=== PATIENT | female | born 1950 | race Caucasian/White ===

== ENCOUNTER 2023-01-07 15:23 | Observation (INO) ==
[2023-01-07] MEDS ORDERED: SODIUM CHLORIDE 1,000 ML IV STA (15:36)
[2023-01-07] MEDS ORDERED: ZOFRAN 4 MG/2 ML IVP ONE (15:40)
--- NOTE | 2023-01-07 15:40 | ED.PDOC ---
General ED Provider: Dr. JOANNA BURNETT MD Chief Complaint: Nausea/Vomiting Stated Complaint: N/V/D Time Seen by Provider: 01/07/23 15:35 Mode of Arrival: Wheelchair Information Source: Patient Exam Limitations: No limitations Primary Care Provider: CORNELIUS MISTRY Nursing and Triage Documentation Reviewed and Agree: Yes GI Complaint Exam Vomiting/Diarrhea Complaint/Exam Onset/Duration: ~1 day ago Symptoms Are: Still present Episodes of Vomiting over last 24 Hours: 50 Episodes of Diarrhea Over Last 24 Hours: 30 Initial Severity: Moderate Current Severity: Moderate Character of Vomiting: Reports Non-bilious Character of Diarrhea: Reports Watery Aggravating: Reports None Alleviating: Reports Clear liquids (Armor Lite (electrolyte drink)) Associated Signs and Symptoms: Reports Dizziness and Light-headedness; Denies Abdominal pain or Cramping Related History: Reports Similar episode (last year secondary to 'intestinal infection' requiring Magnesium, Potassium, and Flagyl) Last Oral Intake: this morning (BodyArmor Lite) Last Bowel Movement: just PERFORMANCE ARCHITECT Non-GI Risk Factors: Reports Vomiting due to neuro Surgical Obstruction Risk Factors: Reports Prior abdominal surgery Related Surgical History: Reports Cholecystectomy, Appendectomy and Colectomy (mass in rectum, second mass in colon) Abdominal Findings: Present None Kussmaul Respirations Present: No Differential Diagnoses: Bowel Obstruction, Dehydration, Gastritis, Viral Gastroenteritis, Bacterial Gastroenteritis, Hepatitis, Pancreatitis and UTI Review of Systems Review Of Systems Constitutional: Reports Malaise, Weakness and Sweats GI: Reports Diarrhea and Nausea; Denies Abdomen distended or Abdominal pain Neurological: Reports Anxiety, Weakness and Other (dizziness/vertigo) All Other Systems: Reviewed and Negative [facility] Medical History Arthritis Cancer Gastrointestinal complication Heart disease Thyroid condition Family History (Updated 01/07/23 @ 21:40 by DONALD BARRETO RN) Mother Elevated LDL cholesterol level Stroke FATHER Myocardial infarct Social History Smoking and tobacco status: Never smoker Alcohol intake: never Substance use type: does not use Elsa/orthodox: YAZDANISM Special elsa needs: No Number of children: 2 Seatbelt use: always Drives intoxicated or rides with intoxicated 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 Working smoke detector in home: Yes Fire extinguisher in home: Yes Carbon monoxide detector in home: Yes Surgical History History of appendectomy History of tonsillectomy Female Reproductive History Menstrual Hx Hysterectomy: Yes Physical Exam Physical Exam Appearance: Reports Ill-appearing and Well-nourished Ill-appearing: Moderate Pain Distress: None Eyes: Reports FAIZA, EOMI and Conjunctiva clear ENT: Reports Ears normal and Nose normal Neck: Nonsupple (normal age-appropriate external appearance) Respiratory: Reports Airway patent, Breath sounds clear and Breath sounds equal Cardiovascular: Reports RRR GI/: Reports Soft, Nontender and Bowel sounds normal Musculoskeletal: Reports Normal strength Skin: Reports Warm, Dry and Normal color Neurological: Reports Sensation intact, Motor intact and Cranial nerves intact Psychiatric: Reports Affect appropriate and Mood appropriate Critical Care Note Critical Care Note Total Critical Care Time (mins): 0 Course Course 01/08/23 04:50 01/08/23 04:50 Orders, Labs, Meds: Lab Review 01/07/23 01/07/23 16:03 17:00 WBC 8.21 RBC 4.38 Hgb 13.2 Hct 40.7 MCV 92.9 MCH 30.1 MCHC 32.4 RDW Coeff of Claire 12.5 Plt Count 239 Immature Gran % (Auto) 0.2 Neut % (Auto) 81.5 H Lymph % (Auto) 8.9 L [place] % (Auto) 8.3 Eos % (Auto) 0.6 Baso % (Auto) 0.5 Neut # (Auto) 6.7 Lymph # (Auto) 0.7 [place] # (Auto) 0.7 Eos # (Auto) 0.1 Baso # (Auto) 0.0 Immature Gran # (Auto) 0.0 Sodium 136.8 Potassium 3.45 L Chloride 102.1 Carbon Dioxide 26.4 Anion Gap 11.75 BUN 9.7 Creatinine 0.77 Estimated GFR (MDRD) 74.00 BUN/Creatinine Ratio 12.59 Glucose 104.5 Lactic Acid 1.36 Calcium 8.72 Magnesium 1.93 Total Bilirubin 1.11 AST 26.9 ALT 18.8 Alkaline Phosphatase 103.4 NT-Pro-B Natriuret Pep 659 H Total Protein 6.86 Albumin 3.97 Globulin 2.89 Albumin/Globulin Ratio 1.37 Amylase 54.0 Lipase 63.7 Procalcitonin < 0.05 Urine Color Yellow Urine Clarity Clear Urine pH 7.0 Ur Specific [place] 1.015 Urine Protein Negative Urine Glucose (UA) Negative Urine Ketones Trace H Urine Blood Negative Urine Nitrite Negative Urine Bilirubin Negative Urine Urobilinogen 0.2 Ur Leukocyte Esterase Negative Influ A Molecular Assay Negative by naat Influ B Molecular Assay Negative by naat RSV Antigen Negative by naat SARS CoV-2 RNA Rapid DAMEON Negative Orders Category Date Time Status PLACE PATIENT OBSERVATION .TO MEDSURG (MONITORED BED ADMISSION 01/07/23 18:16 Active ) ACTIVITY .Early Mobilization for VTE Prevention CARE 01/07/23 18:16 Active BLOOD GLUCOSE MONITORING (MED/SURG) ACCUCHECK Q6H CARE 01/07/23 18:16 Active INTAKE & OUTPUT Q8HR CARE 01/07/23 18:16 Active IP: INSERT SALINE LOCK ONCE CARE 01/07/23 18:16 Active ORTHOSTATIC VITAL SIGNS Q8HR CARE 01/07/23 18:16 Active TELEMETRY MONITORING TELE CARE 01/07/23 18:16 Active VITAL SIGNS Q4HR CARE 01/07/23 18:16 Active Saline Lock [ED IV/MEDIPORT/POWERPORT] .ONCE EMERGENCY 01/07/23 15:36 Active AMYLASE Stat LAB 01/07/23 16:03 Completed BLOOD CULTURE (ED ONLY) Stat LAB 01/07/23 16:03 Received BLOOD CULTURE (ED ONLY) Stat LAB 01/07/23 16:29 Received CBC W/ AUTO DIFF DAILY@0600 LAB 01/08/23 04:50 Completed CBC W/ AUTO DIFF DAILY@0600 LAB 01/09/23 06:00 Ordered CBC W/ AUTO DIFF Stat LAB 01/07/23 16:03 Completed CMP [COMPREHENSIVE METABOLIC PANEL] Stat LAB 01/07/23 16:03 Completed COMPREHENSIVE METABOLIC PANEL DAILY@0600 LAB 01/08/23 04:50 Completed COMPREHENSIVE METABOLIC PANEL DAILY@0600 LAB 01/09/23 06:00 Ordered COVID [SARS COV-2 RNA RAPID DAMEON] Stat LAB 01/07/23 16:03 Completed FLU A & B MOLECULAR [FLU A/B MOLECULAR] Stat LAB 01/07/23 16:03 Completed LACTIC ACID Stat LAB 01/07/23 16:03 Completed LIPASE Stat LAB 01/07/23 16:03 Completed MAGNESIUM DAILY@0600 LAB 01/08/23 04:50 Completed MAGNESIUM Stat LAB 01/07/23 16:03 Completed NT-PROBNP(ED) Stat LAB 01/07/23 16:03 Completed PROCALCITONIN Stat LAB 01/07/23 16:03 Completed RAPID STREP SCREEN [MOLECULAR GROUP A STREP] Stat LAB 01/07/23 16:03 Completed RSV Stat LAB 01/07/23 16:03 Completed UA [URINALYSIS C & S IF INDICATED] Stat LAB 01/07/23 17:00 Completed 0.9 % Sodium Chloride [Saline Flush] Meds 01/07/23 15:36 Active 1 syr IVF PRN PRN Furosemide [Lasix] Meds 01/07/23 16:57 Discontinued 20 mg IVP ONCE ONE Meclizine HCl [Antivert] Meds 01/07/23 18:16 Active 25 mg PO BID PRN Meclizine HCl [Antivert] Meds 01/07/23 18:07 Discontinued 25 mg PO ONCE ONE Metoclopramide HCl [Reglan] Meds 01/07/23 18:16 Active 5 mg IVP Q6H PRN Ondansetron HCl/Pf [Zofran 4 mg/2 ml] Meds 01/07/23 15:40 Discontinued 4 mg IVP ONCE ONE Ondansetron HCl/Pf [Zofran 4 mg/2 ml] Meds 01/07/23 18:16 Active 4 mg IVP Q6H PRN Pantoprazole Sodium [Protonix IV] Meds 01/08/23 20:00 Active 40 mg IVP DAILY Potassium Chloride/D5-0.45NACL [D5%-1/2Ns-KCl 20 Meq/l Meds 01/07/23 17:00 Discontinued IV Ania] 1,000 ml Mvi, Adult No.1 with Vit K [Infuvite Adult] 10 ml IV 100 mls/hr Potassium Chloride/D5-0.45NACL [D5%-1/2Ns-KCl 20 Meq/l Meds 01/07/23 17:11 Discontinued IV Ania] 1,000 ml IV 100 mls/hr Sodium Chloride 0.9% [Sodium Chloride] 1,000 ml Meds 01/07/23 15:[address] HEAD W/O CONTRAST Stat RADS 01/07/23 17:54 Completed KUB Stat RADS 01/07/23 15:37 Completed Medications Generic Name Dose Route Start Last Admin Trade Name Freq PRN Reason Stop Dose Admin Bupropion HCl 300 mg 01/08/23 09:00 Bupropion Hcl 150 Mg Tab.Er.24h PO DAILY MICHELLE Carisoprodol 350 mg 01/07/23 22:00 01/07/23 21:51 Carisoprodol 350 Mg Tablet PO 350 mg TID MICHELLE Administration Potassium Chloride/Dextrose/Sod Cl 1,000 mls @ 100 mls/hr 01/08/23 03:14 01/08/23 03:17 D5%-1/2ns-Kcl 20 Meq/L Iv Ania IV 01/08/23 13:13 100 mls/hr .Q10H STA Administration Lorazepam 2 mg 01/07/23 22:00 01/07/23 21:51 Lorazepam 1 Mg Tablet PO 2 mg TID MICHELLE Administration Meclizine HCl 25 mg 01/07/23 18:16 01/08/23 05:48 Meclizine Hcl 25 Mg Tablet PO 25 mg BID PRN Administration Vertigo Metoclopramide HCl 5 mg 01/07/23 18:16 01/07/23 22:11 Metoclopramide Hcl 10 Mg/2 Ml IVP 5 mg Q6H PRN Administration Nausea / Vomiting Ondansetron HCl 4 mg 01/07/23 18:16 Ondansetron Hcl/Pf 4 Mg/2 Ml Sdv IVP Q6H PRN Nausea / Vomiting Pantoprazole Sodium 40 mg 01/08/23 20:00 Pantoprazole Sodium 40 Mg Vial IVP DAILY MICHELLE Potassium Chloride 20 meq 01/08/23 12:00 Potassium Chloride 20 Meq Tab PO 01/08/23 12:01 ONCE ONE Sodium Chloride 1 syr 01/07/23 15:36 01/07/23 15:50 0.9% Sodium Chloride 10 Ml Disp.Syrin IVF 1 syr PRN PRN Administration To flush IV Discontinued Medications Generic Name Dose Route Start Last Admin Trade Name Freq PRN Reason Stop Dose Admin Furosemide 20 mg 01/07/23 16:57 01/07/23 17:17 Furosemide Inj 20 Mg/2 Ml Vial IVP 01/07/23 16:58 20 mg ONCE ONE Administration Sodium Chloride 1,000 mls @ 500 mls/hr 01/07/23 15:36 01/07/23 19:58 Sodium Chloride IV 01/07/23 17:35 Infused BOLUS STA Infusion Multivitamins/Minerals 10 ml/ 1,010 mls @ 100 mls/hr 01/07/23 17:00 01/07/23 18:20 Potassium Chloride/Dextrose/ IV Not Given Sod Cl .Q10H6M MICHELLE Potassium Chloride/Dextrose/Sod Cl 1,000 mls @ 100 mls/hr 01/07/23 17:11 01/08/23 03:15 D5%-1/2ns-Kcl 20 Meq/L Iv Ania IV 01/08/23 03:10 Infused .Q10H STA Infusion Promethazine HCl 12.5 mg/ 50.5 mls @ 100 mls/hr 01/07/23 19:28 01/07/23 19:46 Sodium Chloride IV 01/07/23 19:58 100 mls/hr ONCE ONE Administration Meclizine HCl 25 mg 01/07/23 18:07 01/07/23 18:13 Meclizine Hcl 25 Mg Tablet PO 01/07/23 18:08 25 mg ONCE ONE Administration Ondansetron HCl 4 mg 01/07/23 15:40 01/07/23 15:50 Ondansetron Hcl/Pf 4 Mg/2 Ml Sdv IVP 01/07/23 15:41 4 mg ONCE ONE Administration Potassium Chloride 40 meq 01/08/23 08:30 Potassium Chloride 20 Meq Tab PO 01/08/23 08:31 ONCE ONE Vital Signs: Temp Pulse Resp BP Pulse Ox 01/07/23 18:22 77 135/99 H 01/07/23 18:22 71 156/98 H 01/07/23 18:22 68 158/78 H 01/07/23 15:25 98.5 F 71 20 186/89 H 97 Symptoms began yesterday after the patient had a Flu shot. She reports having sudden onset of vertiginous dizziness, making it very difficult to ambulate. She reports having weakness to the point where she was afraid she couldn't stand. She believes the shot may have led to the symptoms she has been experiencing She had a similar episode in February, which was attributed to an intestinal infection. requiring a 3-day hospitalization receiving IVF, Magnesium, Potassium, and Metronidazole. Labs/swabs on arrival. She was also given IVF/IV Zofran, with clinical improvement noted. When posted, the only clinically significant abnormal values were mild hypokalemia (3.45) and mild to moderate elevation of her BNP (659); her IVF was changed to 1/2NS+K and she was given some Lasix. Flu/Strep/CoVid/RSV were all negative. When posted, the UA was not consistent with UTI. We were unable to collect an uncontaminated stool sample. She improved with treatment, but still has significant dizziness/vertigo. I spoke with Etienne, the Hospitalist NUT GRINDER, who accepted her. She was in stable condition when transported from the ED to the medical floor. CT Head reported 'No acute intracranial abnormalities are seen'. Discharge Plan Discharge Patient Disposition: PLACED OBSERVATION Discharge Problem: Anxiety, Vertigo Diarrhea Qualifiers: Diarrhea type: unspecified type Qualified Code(s): R19.7 - Diarrhea, unspecified Nausea and vomiting Qualifiers: Vomiting type: unspecified Qualified Code(s): R11.2 - Nausea with vomiting, unspecified Did you review [place] ORCHARD PRUNER for ALL controlled substances?: Not Applicable ED Provider: JOANNA BURNETT Condition: Stable Physician Progress Note: []
[2023-01-07 16:12] LABS: BASOPHILS % (AUTO) 0.5 % (0.0-3.0); EOSINOPHILS # (AUTO) 0.1 K/ul (0.0-0.7); EOSINOPHILS % (AUTO) 0.6 % (0.0-7.0); HEMATOCRIT 40.7 % (37.0-47.0); HEMOGLOBIN 13.2 g/dl (12.0-16.0); IMMATURE GRANULOCYTE % (AUTO) 0.2 % (0.0-5.0); LYMPHOCYTES # (AUTO) 0.7 K/uL (0.60-3.4); LYMPHOCYTES % (AUTO) 8.9 (10.0-50.0); MEAN CORPUSCULAR HEMOGLOBIN 30.1 pg (27.0-31.0); MEAN CORPUSCULAR HGB CONC 32.4 (31.8-35.4); MEAN CORPUSCULAR VOLUME 92.9 fl (81.0-99.0); MONOCYTES # (AUTO) 0.7 K/uL (0.4-2.0); MONOCYTES % (AUTO) 8.3 (0-10); NEUTROPHILS # (AUTO) 6.7 K/ul (2.0-6.9); NEUTROPHILS % (AUTO) 81.5 % (42.2-75.2); PLATELET COUNT 239 10^3/uL (140-440); RDW COEFFICIENT OF VARIATION 12.5 % (11.6-14.8); RED BLOOD COUNT 4.38 10^6/ul (4.20-5.40); WHITE BLOOD COUNT 8.21 K/ul (4.6-10.2)
[2023-01-07 16:26] LABS: ALANINE AMINOTRANSFERASE 18.8 U/L (0-35); ALBUMIN 3.97 g/dL (3.5-5.0); ALKALINE PHOSPHATASE 103.4 U/L (53-141); ASPARTATE AMINO TRANSFERASE 26.9 U/L (14-36); BILIRUBIN,TOTAL 1.11 mg/dL (0.2-1.3); BLOOD UREA NITROGEN 9.7 mg/dL (7-17); CALCIUM 8.72 mg/dL (8.4-10.2); CARBON DIOXIDE 26.4 mmol/L (22-30.0); CHLORIDE 102.1 mmol/L (98-107); CREATININE 0.77 mg/dL (0.60-1.30); GLUCOSE 104.5 mg/dL (74-106); LIPASE 63.7 U/L (23-300); MAGNESIUM 1.93 mg/dL (1.6-2.3); POTASSIUM 3.45 mmol/L (3.5-5.1); SODIUM 136.8 mmol/L (134.5-145); TOTAL PROTEIN 6.86 g/dL (6.3-8.2)
--- NOTE | 2023-01-07 16:30 | DI ---
EXAM: SUPINE AP VIEW OF THE ABDOMEN HISTORY: Nausea, vomiting, diarrhea COMPARISON: None available FINDINGS: There is a nonspecific paucity of bowel gas. No abnormal bowel dilation is evident. Atherosclerotic calcifications are seen. No suspicious calcifications are identified. Thoracolumbar levocurvature is identified with multilevel degenerative disc disease and facet arthropathy. IMPRESSION: Nonspecific, nonobstructive bowel gas pattern.
[2023-01-07 16:38] LABS: MOLECULAR FLU A NEGATIVE BY NAAT (NEGATIVE); MOLECULAR FLU B NEGATIVE BY NAAT (NEGATIVE); RSV MOLECULAR NEGATIVE BY NAAT (NEGATIVE); SARS COV-2 RNA RAPID NAAT NEGATIVE (NEGATIVE)
[2023-01-07] MEDS ORDERED: LASIX IVP ONE (16:57)
[2023-01-07] MEDS ORDERED: INFUVITE ADULT 10 ML in D5%-1/2NS-KCL 20 MEQ/L IV SOL 1,000 ML IV SCH (17:00)
[2023-01-07 17:06] LABS: BILIRUBIN,URINE Negative (NEGATIVE); CLARITY,URINE Clear (CLEAR); COLOR,URINE Yellow (YELLOW); GLUCOSE, URINE (UA) Negative (NEGATIVE); KETONES,URINE Trace (NEGATIVE); LEUKOCYTE ESTERASE ,URINE Negative (NEGATIVE); NITRITE,URINE Negative (NEGATIVE); PROTEIN,URINE Negative (NEGATIVE); URINE, BLOOD Negative (NEGATIVE); UROBILINOGEN,URINE 0.2 (0.2)
[2023-01-07] MEDS ORDERED: D5%-1/2NS-KCL 20 MEQ/L IV SOL 1,000 ML IV STA (17:11)
[2023-01-07] MEDS ORDERED: ANTIVERT PO ONE (18:07)
[2023-01-07] MEDS ORDERED: REGLAN IVP PRN (18:16)
[2023-01-07] MEDS ORDERED: ZOFRAN 4 MG/2 ML IVP PRN (18:16)
[2023-01-07] MEDS ORDERED: ANTIVERT PO PRN (18:16)
--- NOTE | 2023-01-07 18:59 | CT ---
EXAM: CT SCAN OF THE HEAD WITHOUT CONTRAST HISTORY: dizziness, vertigo TECHNIQUE: Imaging of the head was performed without contrast. 5 mm thin axial images and coronal a nd sagittal images were obtained. FINDINGS: The ruiz-white interface appears normal. No acute hemorrhages are seen. There is no mass effect. There are no extraaxial collections. The paranasal sinuses are clear. IMPRESSION: No acute intracranial abnormalities are seen. All CT scans are performed using dose optimization techniques as appropriate to the performed exam an d include at least one of the following: Automated exposure control, adjustment of the mA and/or kV according t o size, and the use of iterative reconstruction technique.
[2023-01-07] MEDS ORDERED: PHENERGAN 25 MG/ML VIAL 12.5 MG in SODIUM CHLORIDE 50 ML IV ONE (19:28)
[2023-01-07] MEDS ORDERED: PHENERGAN 25 MG/ML VIAL ONE (19:32)
[2023-01-07 21:31] VITALS: BMI 21.7
[2023-01-07] MEDS: ATIVAN PO SCH (21:51)
[2023-01-07] MEDS: SOMA PO SCH (21:51)
[2023-01-08] MEDS ORDERED: D5%-1/2NS-KCL 20 MEQ/L IV SOL 1,000 ML IV STA (03:14)
[2023-01-08 05:16] LABS: BASOPHILS # (AUTO) 0.1 K/uL (0-0.2); BASOPHILS % (AUTO) 0.8 % (0.0-3.0); EOSINOPHILS # (AUTO) 0.2 K/ul (0.0-0.7); EOSINOPHILS % (AUTO) 3.2 % (0.0-7.0); HEMATOCRIT 35.8 % (37.0-47.0); HEMOGLOBIN 11.7 g/dl (12.0-16.0); IMMATURE GRANULOCYTE % (AUTO) 0.3 % (0.0-5.0); LYMPHOCYTES # (AUTO) 1.5 K/uL (0.60-3.4); LYMPHOCYTES % (AUTO) 25.5 (10.0-50.0); MEAN CORPUSCULAR HEMOGLOBIN 30.2 pg (27.0-31.0); MEAN CORPUSCULAR HGB CONC 32.7 (31.8-35.4); MEAN CORPUSCULAR VOLUME 92.5 fl (81.0-99.0); MONOCYTES # (AUTO) 0.8 K/uL (0.4-2.0); MONOCYTES % (AUTO) 13.9 (0-10); NEUTROPHILS # (AUTO) 3.3 K/ul (2.0-6.9); NEUTROPHILS % (AUTO) 56.3 % (42.2-75.2); PLATELET COUNT 206 10^3/uL (140-440); RDW COEFFICIENT OF VARIATION 12.8 % (11.6-14.8); RED BLOOD COUNT 3.87 10^6/ul (4.20-5.40); WHITE BLOOD COUNT 5.92 K/ul (4.6-10.2)
[2023-01-08 05:35] LABS: ALANINE AMINOTRANSFERASE 15.5 U/L (0-35); ALBUMIN 3.13 g/dL (3.5-5.0); ASPARTATE AMINO TRANSFERASE 25.1 U/L (14-36); BILIRUBIN,TOTAL 0.76 mg/dL (0.2-1.3); BLOOD UREA NITROGEN 9.7 mg/dL (7-17); CALCIUM 8.06 mg/dL (8.4-10.2); CARBON DIOXIDE 27.9 mmol/L (22-30.0); CHLORIDE 105.5 mmol/L (98-107); CREATININE 0.85 mg/dL (0.60-1.30); GLUCOSE 93.2 mg/dL (74-106); MAGNESIUM 1.87 mg/dL (1.6-2.3); POTASSIUM 3.04 mmol/L (3.5-5.1); SODIUM 137.1 mmol/L (134.5-145); TOTAL PROTEIN 5.6 g/dL (6.3-8.2)
[2023-01-08] MEDS ORDERED: K-DUR PO ONE ×3 (08:18→12:00)
[2023-01-08] MEDS ORDERED: WELLBUTRIN XL PO SCH (09:00)
[2023-01-08] MEDS: ATIVAN PO SCH (09:02)
[2023-01-08] MEDS: SOMA PO SCH (09:02)
[2023-01-08 10:04] VITALS: BP 137/71; PULSE 57; RESP 14; TEMP 97.9
--- NOTE | 2023-01-08 11:18 | PCM.SS ---
Provider Provider[facility] TRISH LUX, [facility] Admission Date Admission Date: 01/07/23 Discharge Date Discharge Date: 01/08/23 Primary Care Physician Primary Care Physician: ANSON JUAN Chief Complaint Reason For Visit: N/V/D,VERTIGO History of Present Illness History of Present Illness: Admitted 01/07/23 19:12, this 72 year old /WHITE/F presented to the ER yesterday following a day of N/V/D. States she got her flu shot on 01/06 and that evening she become dizzy and started vomiting. States she continued to worsen as the day went on yesterday before she decided to come into the hospital. Denies any fever that she aware of, abdominal pain, urinary symptoms, chest pain, or sob. Denies any blood in her vomit or stool. Reported her L ear felt as if she had fluid in it and had some pain. [facility] Medical History Gastrointestinal complication K92.9 - Disease of digestive system, unspecified (ICD-10) Thyroid condition E07.9 - Disorder of thyroid, unspecified (ICD-10) Cancer C80.1 - Malignant (primary) neoplasm, unspecified (ICD-10) Heart disease I51.9 - Heart disease, unspecified (ICD-10) Arthritis M19.90 - Unspecified osteoarthritis, unspecified site (ICD-10) Surgical History History of appendectomy Z90.49 - Other specified postprocedural states (ICD-10) History of tonsillectomy Z90.89 - Other specified postprocedural states (ICD-10) Family History Mother Elevated LDL cholesterol level Stroke FATHER Myocardial infarct Social History Smoking and tobacco status: Never smoker Alcohol intake: never Substance use type: does not use Elsa/nondenominational: DENOMINATIONAL Special elsa needs: No Number of children: 2 Seatbelt use: always Drives intoxicated or rides with intoxicated 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 Working smoke detector in home: Yes Fire extinguisher in home: Yes Carbon monoxide detector in home: Yes Medications Mecications: Medications at Discharge (Home Meds & RX) bupropion HCl 150 mg tablet,12 hr sustained-release (Wellbutrin SR) 150 mg PO BID 04/28/14 carisoprodol 350 mg tablet (Soma) 350 mg PO TID 04/28/14 lorazepam 2 mg tablet (Ativan) 2 mg PO TID 01/04/19 amoxicillin 875 mg-potassium clavulanate 125 mg tablet 1 tab PO Q12H #14 tabs 01/08/23 amoxicillin 875 mg-potassium clavulanate 125 mg tablet 1 tab PO Q12H #14 tabs 01/08/23 meclizine 25 mg tablet 25 mg PO BID PRN dizziness #20 tabs 01/08/23 meclizine 25 mg tablet 25 mg PO BID PRN dizziness #20 tabs 01/08/23 ondansetron 4 mg disintegrating tablet 4 mg PO Q6H PRN nausea and vomiting #20 tabs 01/08/23 ondansetron 4 mg disintegrating tablet 4 mg PO Q6H PRN nausea and vomiting #20 tabs 01/08/23 Allergies Allergies Allergy/AdvReac Type Severity Reaction Status Date / Time codeine AdvReac Verified 01/07/23 15:50 morphine AdvReac Verified 01/07/23 15:50 Sulfa (Sulfonamide AdvReac Verified 01/07/23 15:50 Antibiotics) Review of Systems Constitutional: Reports Weakness Head: Reports Normocephalic and Atraumatic Eyes: Reports No symptoms Ears: Reports Pain Nose: Reports No symptoms Mouth: Reports No symptoms Throat: Reports No symptoms Cardiovascular: Reports No symptoms Respiratory: Reports No symptoms Gastrointestinal: Reports Nausea, Vomiting and Diarrhea Genitourinary: Reports No Symptoms Musculoskeletal: Reports No symptoms Endocrine: Reports No symptoms Hematology: Reports No symptoms Immunology: Reports No symptoms Neurological: Reports Dizziness Psychiatric: Reports No symptoms Physical Examination Appearance: Positive Well-appearing, Well-nourished, No Apparent Distress and Alert and Oriented x3 Head: Positive Normocephalic and Atraumatic Eyes: Positive FAIZA ENT: Positive Erythema (to bilateral TM) Neck: Positive Supple, Non-Tender and Trachea Midline Heart: Positive RRR and No Murmurs Respiratory: Positive Airway patent, Breath Sounds Clear, Bilaterally, Breath Sounds Equal and Respirations Nonlabored GI/: Positive Soft, Nontender, Bowel sounds normal, No Distention and No Organomegaly Extremities: Positive Pedal Pulses Palpable Bilaterally Neurological: Positive Recent Memory Intact, Remote Memory Intact, Sensation Intact, Motor Intact, Reflexes Intact, Alert and Oriented Psychiatric: Positive Normal Judgement, Normal Insight and Anxious Vital Signs (Last 4 Hours) Vital Signs Last 4 Hours: Vital Signs: Last 4 Hours 01/08/23 08:00 01/08/23 08:00 01/08/23 09:00 Temperature Temperature Source Pulse Rate Respiratory Rate Blood Pressure Blood Pressure Mean Blood Pressure Location Blood Pressure Position O2 Sat by Pulse Oximetry Oxygen Delivery Method Room Air Room Air Room Air 01/08/23 09:28 01/08/23 10:00 Temperature 97.9 F Temperature Source Oral Pulse Rate 57 L Respiratory Rate 14 Blood Pressure 137/71 Blood Pressure Mean 93 Blood Pressure Location Left Arm Blood Pressure Position Sitting O2 Sat by Pulse Oximetry 99 Oxygen Delivery Method Room Air Room Air Labs This Visit Labs This Visit: Labs This Visit 01/07/23 01/07/23 01/08/23 16:03 17:00 04:50 WBC 8.21 5.92 RBC 4.38 3.87 L Hgb 13.2 11.7 L Hct 40.7 35.8 L MCV 92.9 92.5 MCH 30.1 30.2 MCHC 32.4 32.7 RDW Coeff of Claire 12.5 12.8 Plt Count 239 206 Immature Gran % (Auto) 0.2 0.3 Neut % (Auto) 81.5 H 56.3 Lymph % (Auto) 8.9 L 25.5 [place] % (Auto) 8.3 13.9 H Eos % (Auto) 0.6 3.2 Baso % (Auto) 0.5 0.8 Neut # (Auto) 6.7 3.3 Lymph # (Auto) 0.7 1.5 [place] # (Auto) 0.7 0.8 Eos # (Auto) 0.1 0.2 Baso # (Auto) 0.0 0.1 Immature Gran # (Auto) 0.0 0.0 Sodium 136.8 137.1 Potassium 3.45 L 3.04 L Chloride 102.1 105.5 Carbon Dioxide 26.4 27.9 Anion Gap 11.75 6.74 BUN 9.7 9.7 Creatinine 0.77 0.85 Estimated GFR (MDRD) 74.00 66.00 BUN/Creatinine Ratio 12.59 11.41 Glucose 104.5 93.2 Lactic Acid 1.36 Calcium 8.72 8.06 L Magnesium 1.93 1.87 Total Bilirubin 1.11 0.76 AST 26.9 25.1 ALT 18.8 15.5 Alkaline Phosphatase 103.4 70.0 D NT-Pro-B Natriuret Pep 659 H Total Protein 6.86 5.60 L Albumin 3.97 3.13 L Globulin 2.89 2.47 Albumin/Globulin Ratio 1.37 1.26 Amylase 54.0 Lipase 63.7 Procalcitonin < 0.05 Urine Color Yellow Urine Clarity Clear Urine pH 7.0 Ur Specific [place] 1.015 Urine Protein Negative Urine Glucose (UA) Negative Urine Ketones Trace H Urine Blood Negative Urine Nitrite Negative Urine Bilirubin Negative Urine Urobilinogen 0.2 Ur Leukocyte Esterase Negative Influ A Molecular Assay Negative by naat Influ B Molecular Assay Negative by naat RSV Antigen Negative by naat SARS CoV-2 RNA Rapid DAMEON Negative Microbiology This Visit 01/07/23 16:03 Throat Group A Strep Molecular Assay - Final Imaging Imaging: EXAM: SUPINE AP VIEW OF THE ABDOMEN HISTORY: Nausea, vomiting, diarrhea COMPARISON: None available FINDINGS: There is a nonspecific paucity of bowel gas. No abnormal bowel dilation is evident. Atherosclerotic calcifications are seen. No suspicious calcifications are identified. Thoracolumbar levocurvature is identified with multilevel degenerative disc disease and facet arthropathy. IMPRESSION: Nonspecific, nonobstructive bowel gas pattern. Review Review Statement: I have independently reviewed and interpreted the labs/EKGs/imaging that were ordered by the ER provider. I have reviewed all outside records that are available currently in our EMR including imaging/notes/labs from previous visits. Plan Reccomendations/Plan: 1. Intractable N/V/D in setting of viral gastroenteritis and vertigo - received IV fluids overnight, able to tolerate clears, has not vomited or had diarrhea since in ER last night, zofran effective for nausea, meclizine effective for dizziness 2. Otitis media - treating with augmentin bid x 7 days Additional Planning: Case discussed with ED Physician, Dr. Polanco. DVT Prophylaxis: Up with assistance Disposition: Admit to: Med/Surg Observation DNR Discussed Plan of Care with Dr. Bonny Botello. If patient discharged with Left Ventricular Systolic Dysfunction: NA Discharged with a beta angus? [] If no, why not? [] Discharged with an boyd/arb? [] If no, why not? [] Clear liquid diet - advance as you can tolerate Activity as tolerated Complete course of augmentin to treat otitis media Zofran prescribed as needed for nausea/vomiting Meclizine prescribed as needed for vertigo. YOU HAVE A HOSPITAL FOLLOW UP WITH [facility], PROVIDER ANSON JUAN, ON ThursdayJanuary AT 1:30PM. SHOULD YOU HAVE ANY QUESTIONS OR NEED TO RESCHEDULE YOU CAN CONTACT THEIR OFFICE AT [phone]. Review With Patient Reviewed with Patient and Family: Patient and family have been counseled on condition and care plan and have no immediate questions. I have personally discussed and reviewed the patient's visit/current labs/imaging/decision making with Dr. Ghada Botello, my supervising attending. Total number of minutes spent with patient 85 min. More than 50% of the time spent with this patient was devoted to counseling and coordination of care. Time of Admission:01/07/23 19:12 Time of Discharge: 09:45 Discharge Plan Discharge Discharge Orders: Discharge Patient (ONCE); Ordered 01/08/23 Ordered By: ISAAC REAGAN Activity Restrictions/Additional Instructions: Clear liquid diet - advance as you can tolerate Activity as tolerated Complete course of augmentin to treat otitis media Zofran prescribed as needed for nausea/vomiting Meclizine prescribed as needed for vertigo. YOU HAVE A HOSPITAL FOLLOW UP WITH [facility], PROVIDER ANSON JUAN, ON ThursdayJanuary AT 1:30PM. SHOULD YOU HAVE ANY QUESTIONS OR NEED TO RESCHEDULE YOU CAN CONTACT THEIR OFFICE AT [phone]. Instructions: Dehydration (GEN), Vertigo (GEN), Gastroenteritis (GEN) Care Plan Goals: Problem: Diarrhea Goal: Achieve optimal elimination pattern Instructions: Evaluate causative factors of diarrhea Stool Assessment Perineal skin careProblem: Nausea Goal #1: Maintain adequate fluid volume Instructions: Monitor for signs and symptoms of dehydration Monitor I/O as needed Goal #2: Relief of nausea Instructions: Medication as ordered Position to prevent aspiration Patient Disposition: HOME SELF-CARE Prescriptions: New meclizine 25 mg Tablet 25 mg PO BID PRN (Reason: dizziness) Qty: 20 0RF ondansetron 4 mg tablet,disintegrating 4 mg PO Q6H PRN (Reason: nausea and vomiting) Qty: 20 0RF amoxicillin-pot clavulanate 875-125 mg tablet 1 tab PO Q12H Qty: 14 0RF amoxicillin-pot clavulanate 875-125 mg tablet 1 tab PO Q12H Qty: 14 0RF ondansetron 4 mg tablet,disintegrating 4 mg PO Q6H PRN (Reason: nausea and vomiting) Qty: 20 0RF meclizine 25 mg tablet 25 mg PO BID PRN (Reason: dizziness) Qty: 20 0RF Continued carisoprodol [Soma] 350 MG tablet 350 mg PO TID bupropion HCl [Wellbutrin SR] 150 MG tablet sustained-release 12 hr 150 mg PO BID lorazepam [Ativan] 2 mg tablet 2 mg PO TID Did you review [place] CONTACT AGENT for ALL controlled substances?: No Discussed opioids are addictive and Narcan is available by prescription or from pharmacy.: No Condition: Stable
[2023-01-08] MEDS ORDERED: PROTONIX IV IVP SCH (20:00)
== END 2023-01-08 11:13 | disposition home or self-care (01) ==
LOC: MEDSURG B 15:23 → ED 15:23 → MEDSURG B 20:29
PROVIDERS: ADMIT Hospitalist; ATTEND Nurse Practitioner Family
DX: Z20.822 Contact with and (suspected) exposure to COVID-19; R42 Dizziness and giddiness; E87.1 Hypo-osmolality and hyponatremia; R79.89 Other specified abnormal findings of blood chemistry; F41.9 Anxiety disorder, unspecified; A04.8 Other specified bacterial intestinal infections; H66.93 Otitis media, unspecified, bilateral